=== PATIENT | female | born 1945 | race Two or more races ===

== ENCOUNTER 2018-01-23 01:24 | Emergency (ER) | payer MEDICAID, MEDICARE ==
[~2018-01-23] VITALS: Ht 162.6 cm; Wt 77.0 kg
[2018-01-23 03:29] VITALS: BP 175/68
== END 2018-01-23 03:30 | disposition home or self-care (01) ==
LOC: ER 01:24
DX: H93.19 Tinnitus, unspecified ear (principal)
CPT/HCPCS: 99283